=== PATIENT | male | born 1960 | race Hispanic/Latino ===

== ENCOUNTER → 2016-11-28 | Day surgery (SDC) | payer MEDICARE, MEDICAID ==
[~2016-11-28] VITALS: Ht 180.3 cm; Wt 106.0 kg
[~2016-11-28] MED LIST: 0.9% Sodium Chloride 1,000 ML IV PRN; ACET-2766 PO; AMLO10TA3 PO; CARV3.122 PO; CITA20TA11 PO; GLIP10TA10 PO; HYDR25TA4 PO; IBUP800T28 PO; LOSA100T29 PO; METF500T4 PO; MULT-1074 PO; PRAV20TA2 PO; ROSU5TAB PO; Sodium Chloride LOK Flush 10 mL Syringe IV PRN; fentaNYL-PF 50 mCg/mL 2 mL Inj IVPUSH PRN
[2016-11-28 10:24] VITALS: BP 177/87; PULSE 82; RESP 16; O2SAT 99
[2016-11-28 11:42] VITALS: BP 154/73; PULSE 79; RESP 14; O2SAT 96
[2016-11-28 11:52] VITALS: BP 164/77; PULSE 79; O2SAT 95
[2016-11-28 12:02] VITALS: BP 152/76; PULSE 78; O2SAT 98
--- NOTE | 2016-11-28 23:57 | ENDO ---
[address] [address] ENDOSCOPY PROCEDURE PATIENT: THIERNO COUCH : 1960 MR#: [id number] ADMIT: 11/28/2016 JOB ID: [id number] DATE OF PROCEDURE: 11/28/2016 PROCEDURE: Esophagogastroduodenoscopy. INDICATION: Anemia. Patient's ASA classification is II. Mallampati score is 2. MEDICATIONS: 1. Versed 5 mg. 2. Fentanyl 100 mcg. Used for EGD, as well as colonoscopy that followed. INSTRUMENT USED: GIF-H180J. PROCEDURE DETAILS: After informed consent was obtained, the patient was brought into the GI suite, where he was placed on oxygen via nasal cannula and monitored with continuous pulse oximeter, telemetry, and blood pressure monitoring. A time-out was performed. Then, he was placed in the left lateral decubitus position and medications were administered for sedation. A bite block was placed. The standard EGD scope was inserted through the bite block and advanced under direct visualization to the second portion of duodenum without difficulty. FINDINGS: 1. Normal appearing duodenal bulb, first and second portion. Multiple random biopsies obtained. 2. Normal appearing pylorus, antrum and gastric body. 3. Retroflexed views the gastric body revealed a normal appearing cardia and fundus. 4. Multiple random biopsies were obtained throughout the antrum and body of the stomach. 5. Normal appearing GE junction with a regular Z-line at 42 cm. 6. Normal appearing esophagus. IMPRESSION: Normal esophagogastroduodenoscopy exam to second portion of duodenum. No findings to explain the patient's anemia. RECOMMENDATIONS: Proceed to colonoscopy. PROCEDURE PERFORMED: Colonoscopy. INDICATION: Anemia. Please see above for ASA classification, Mallampati score, and medications. INSTRUMENT USED: PCF-H180AL. PREPARATION QUALITY: Was good. PROCEDURE DETAILS: After completion of the EGD exam, the patient was turned and then a digital rectal exam was performed which was unremarkable. The colonoscope was then inserted into the rectum and advanced under direct visualization to the cecum, which was identified by the presence of the ileocecal valve and appendiceal orifice. Once the cecum was reached, the colonoscope was withdrawn back into the rectum as the mucosa and lumen were examined. In the rectum, retroflexion was performed. Following retroflexion, remaining air in the rectum was suctioned and procedure was completed. FINDINGS: 1. In the ascending colon, there was an approximately 8 mm submucosal lipoma. 2. In the transverse colon, there was an approximately 5 mm sessile polyp that was removed with a cold snare. IMPRESSION: 1. Ascending colon lipoma. 2. Transverse colon polyp. RECOMMENDATIONS: 1. Repeat CBC if anemia has not resolved and will plan for capsule study to further evaluate. 2. Repeat colonoscopy pending polyp pathology results. 3. Follow up in GI clinic in 2-4 weeks. COMPLICATIONS: None. ESTIMATED BLOOD LOSS: Less than 5 mL.
--- NOTE | 2016-11-29 13:55 | PATH ---
SURGICAL PATHOLOGY Attending Physician:Kate Martin CASE STATUS: Signed Out PATIENT NAME: THIERNO COUCH PID: [id number] : 1960 DATE COLLECTED:11/28/2016 18:59 SPECIMEN: 1: Duodenum, Biopsy 2: Gastric, Biopsy 3: Colon, Polyp CLINICAL HISTORY: 1). DUODENAL BIOPSY 2). RANDOM GASTRIC BIOPSY 3). TRANSVERSE POLYP X 1 FINAL DIAGNOSIS: 1.DUODENAL BIOPSY: SMALL BOWEL MUCOSA WITH NO DIAGNOSTIC ABNORMALITY. No evidence of active inflammation, features of sprue, dysplasia, or malignancy. 2.RANDOM GASTRIC BIOPSY: HELICOBACTER PYLORI GASTRITIS. Negative for intestinal metaplasia. Negative for dysplasia and malignancy. 3.TRANSVERSE COLON POLYP, BIOPSY: TUBULAR ADENOMA. ICD10 D12.6 GROSS DESCRIPTION: The specimen is received in three formalin filled containers labeled with the patient's name. 1). The specimen is labeled "duod" and consists of a 0.3 x 0.2 x 0.2 CM portion of tissue which is entirely submitted in cassette 1A. 2). The specimen is labeled "gastric" and consists of 2 portions of tissue which aggregate to 0.3 x 0.2 x 0.2 CM. The specimen is entirely submitted in cassette 2A. 3). The specimen is labeled "trans" and consists of a 0.6 x 0.4 x 0.4 CM portion of tissue which is entirely submitted in cassette 3A. 11/28/2016DC MICRO DESCRIPTION: See diagnosis. ICD-9 CODES: CPT CODES: 1: 37260 2: 97186 3: 73459 Electronically Signed Out Andrea Uribe MD [facility] [address], [place] [address] Technical component performed at [facility], [facility] [address], [place], [address]
== END | disposition home or self-care (01) ==
LOC: END 00:02
PROVIDERS: ATTEND Internal Medicine Gastroenterology
DX: D64.9 Anemia, unspecified (principal); D12.3 Benign neoplasm of transverse colon; D17.79 Benign lipomatous neoplasm of other sites; K29.70 Gastritis, unspecified, without bleeding; A04.8 Other specified bacterial intestinal infections; N28.9 Disorder of kidney and ureter, unspecified
CPT/HCPCS: 43239; 45385; 88305; 99153; G0500; J2250; J3010; J7030